=== PATIENT | female | born 1990 | race Hispanic/Latino ===

== ENCOUNTER 2022-11-04 15:07 | Emergency (ER) | payer BC ==
[~2022-11-04] VITALS: Ht 152.4 cm; Wt 99.8 kg
[2022-11-04] MEDS ORDERED: TRAMADOL HCL 50 MG TAB ONE (15:43)
[2022-11-04] MEDS ORDERED: TRAMADOL HCL 50 MG TAB PO ONE (15:45)
[2022-11-04] MEDS ORDERED: KETOROLAC TROME10 MG PO (17:00)
== END 2022-11-04 17:20 | disposition home or self-care (01) ==
LOC: FSED 15:26
DX: S83.8X2A Sprain of other specified parts of left knee, initial encounter (principal); X50.1XXA Overexertion from prolonged static or awkward postures, initial encounter; Y93.02 Activity, running; Y92.89 Other specified places as the place of occurrence of the external cause
CPT/HCPCS: 99284